=== PATIENT | female | born 1980 | race Caucasian/White ===

== ENCOUNTER 2021-05-29 00:12 | Emergency (ER) | payer OTHER ==
[~2021-05-29] VITALS: Ht 154.9 cm; Wt 74.4 kg
[2021-05-29 00:12] VITALS: BP 150/91
[2021-05-29] MEDS ORDERED: ALBUTEROL FS 2.5 MG/3 ML VIAL.NEB NEB ONE (00:30)
[2021-05-29] MEDS ORDERED: IPRATROPIUM NEB FS 0.5 MG/2.5 ML AMPUL.NEB NEB ONE (00:30)
[2021-05-29] MEDS ORDERED: IPRATROPIUM NEB FS 0.5 MG/2.5 ML AMPUL.NEB ONE (00:30)
[2021-05-29] MEDS ORDERED: ALBUTEROL FS 2.5 MG/3 ML VIAL.NEB ONE (00:30)
--- NOTE | 2021-05-29 00:46 | NUR ---
RT AT BESIDE FOR BREATHING TREATMENT.
--- NOTE | 2021-05-29 01:19 | NUR ---
BREATHING TREATMENT COMPLETE
[2021-05-29] MEDS ORDERED: ALBU8.5H8 INH (02:02)
== END 2021-05-29 02:07 | disposition home or self-care (01) ==
LOC: ER 00:17
DX: J40 Bronchitis, not specified as acute or chronic (principal); B34.9 Viral infection, unspecified; E11.9 Type 2 diabetes mellitus without complications
CPT/HCPCS: 71045-TC